=== PATIENT | female | born 1985 | race Caucasian/White ===

== ENCOUNTER → 2018-04-07 | Outpatient (REF) | payer SELFPAY | LOC: M LAB REF 11:36 | PROVIDERS: ATTEND Physician Assistant | DX: R30.0 Dysuria (principal) ==

== ENCOUNTER → 2019-11-09 | Outpatient (REF) | payer BC | LOC: M LAB REF 15:47 | PROVIDERS: ATTEND Physician Assistant Medical | DX: Z20.828 Contact with and (suspected) exposure to other viral communicable diseases (principal) ==

== ENCOUNTER 2021-10-26 15:44 | Inpatient (IN) | payer OTHER, MEDICAID ==
[~2021-10-26] VITALS: Ht 167.6 cm; Wt 68.9 kg
[2021-10-26] MEDS ORDERED: ONDA-83 PO (16:01)
[2021-10-26] MEDS ORDERED: LORazepam 2 MG/ML VIAL IV STA (16:32)
[2021-10-26] MEDS ORDERED: OXAZEPAM 15MG CAP PO ONE (16:35)
[2021-10-26] MEDS ORDERED: MULTIVITAMIN -ADULT INJECTION 10 ML, THIAMINE INJection 100 MG, FOLIC ACID 1 MG in NS 1... IV ONE (16:35)
[2021-10-26 17:07] LABS: BASO % 0.4 % (0.0-1.0); HEMATOCRIT 34.3 % (36.0-47.0); HEMOGLOBIN 11.5 g/dl (12.0-15.5); LYMPH # 0.6 10^3/uL (1.5-5.0); LYMPH % 7.5 % (24.0-44.0); MEAN CORPUSCULAR HEMOGLOBIN 27.2 pg (27.0-33.0); MEAN CORPUSCULAR HGB CONC 33.5 g/dl (32.0-36.5); MEAN CORPUSCULAR VOLUME 81.1 fl (80.0-96.0); MONO # 0.5 10^3/uL (0.0-0.8); MONO % 7.3 % (2.0-8.0); NEUTROPHILS # 6.3 10^3/uL (1.5-8.5); NEUTROPHILS % 84.1 % (36.0-66.0); PLATELET COUNT, AUTOMATED 100 10^3/uL (150-450); RED BLOOD COUNT 4.23 10^6/uL (4.00-5.40); WHITE BLOOD COUNT 7.4 10^3/uL (4.0-10.0)
[2021-10-26 17:33] LABS: ALBUMIN 3.5 GM/DL (3.2-5.2); ALT/SGPT 61 U/L (12-78); BILIRUBIN,DIRECT 0.8 MG/DL (0.0-0.2); BILIRUBIN,TOTAL 2.2 MG/DL (0.2-1.0); BLOOD UREA NITROGEN 2 MG/DL (7-18); CALCIUM LEVEL 8.7 MG/DL (8.5-10.1); CARBON DIOXIDE LEVEL 27 MEQ/L (21-32); CHLORIDE LEVEL 91 MEQ/L (98-107); GLOMERULAR FILTRATION RATE > 60.0 (>60); GLUCOSE, FASTING 152 MG/DL (70-100); MAGNESIUM LEVEL 1.1 MG/DL (1.8-2.4); PHOSPHORUS LEVEL 1.2 MG/DL (2.5-4.9); POTASSIUM SERUM 3.5 MEQ/L (3.5-5.1); SODIUM LEVEL 127 MEQ/L (136-145); TOTAL PROTEIN 7.5 GM/DL (6.4-8.2)
[2021-10-26 17:39] LABS: RSV AMPLIFICATION NEGATIVE (NEGATIVE)
[2021-10-26] MEDS ORDERED: NEUTRA-PHOS 1.5 GM PACKET PO ONE (17:40)
[2021-10-26] MEDS ORDERED: MAGNESIUM OXIDE 400MG TAB (MAG-OX) PO ONE (17:40)
[2021-10-26 17:47] LABS: HCG, SERUM QUALITATIVE NEGATIVE (NEGATIVE)
[2021-10-26] MEDS ORDERED: ACETAMINOPHEN TAB 650MG DOSE (2X325MG) PO PRN (20:45)
[2021-10-26] MEDS ORDERED: LORazepam 2 MG/ML VIAL IV PRN (20:45)
[2021-10-26] MEDS ORDERED: MOM 30ML SUSPENSION UDC PO PRN (20:45)
[2021-10-26] MEDS ORDERED: NS 1,000 ML IV SCH (20:45)
[2021-10-26] MEDS ORDERED: LORazepam 2 MG TAB PO PRN (20:45)
[2021-10-26] MEDS ORDERED: THIAMINE 100 MG TAB PO SCH (21:00)
[2021-10-26 22:10] VITALS: BP 159/89
[2021-10-26 22:13] VITALS: BP 154/87
[2021-10-26 22:17] VITALS: BP 159/89
[2021-10-26 23:01] VITALS: BP 123/100
[2021-10-26 23:04] VITALS: BP 137/92
[2021-10-26] MEDS: OXAZEPAM 10MG CAP PO SCH (23:19)
[2021-10-26] MEDS ORDERED: HOME MED LIST COMPLETE! XX SCH (23:35)
[2021-10-27] VITALS (13 sets, daily range): BP systolic 115–150; BP diastolic 67–111
[2021-10-27 04:44] LABS: HEMATOCRIT 32.8 % (36.0-47.0); HEMOGLOBIN 11.1 g/dl (12.0-15.5); MEAN CORPUSCULAR HEMOGLOBIN 28.3 pg (27.0-33.0); MEAN CORPUSCULAR HGB CONC 33.8 g/dl (32.0-36.5); MEAN CORPUSCULAR VOLUME 83.7 fl (80.0-96.0); RED BLOOD COUNT 3.92 10^6/uL (4.00-5.40); WHITE BLOOD COUNT 5.5 10^3/uL (4.0-10.0)
[2021-10-27 05:07] LABS: PLATELET COUNT, AUTOMATED 87 10^3/uL (150-450)
[2021-10-27 05:14] LABS: ALBUMIN 3.2 GM/DL (3.2-5.2); ALT/SGPT 60 U/L (12-78); BILIRUBIN,TOTAL 2.3 MG/DL (0.2-1.0); BLOOD UREA NITROGEN 5 MG/DL (7-18); CALCIUM LEVEL 8.9 MG/DL (8.5-10.1); CARBON DIOXIDE LEVEL 29 MEQ/L (21-32); CHLORIDE LEVEL 102 MEQ/L (98-107); GLOMERULAR FILTRATION RATE > 60.0 (>60); GLUCOSE, FASTING 77 MG/DL (70-100); MAGNESIUM LEVEL 1.8 MG/DL (1.8-2.4); POTASSIUM SERUM 3.3 MEQ/L (3.5-5.1); SODIUM LEVEL 137 MEQ/L (136-145)
[2021-10-27] MEDS ORDERED: POTASSIUM CHL PWD 20 MEQ PACKET PO ONE (05:40)
[2021-10-27] MEDS: OXAZEPAM 10MG CAP PO SCH ×4 (05:54→22:59)
[2021-10-27] MEDS: HEPARIN SOD (PORCINE) 5000UNITS/ML 1ML VIAL/SYRINGE SC SCH ×3 (06:00→22:00)
[2021-10-27] MEDS: THIAMINE 100 MG TAB PO SCH ×2 (07:57→20:23)
[2021-10-27] MEDS: FOLIC ACID 1MG TAB PO SCH (07:57)
[2021-10-27] MEDS: MULTIVITAMINS/MINERALS THERAP 1 TAB PO SCH (07:57)
[2021-10-27] MEDS ORDERED: POTASSIUM CHLORIDE 10MEQ SR TABLET PO ONE (09:15)
[2021-10-27] MEDS ORDERED: oxyCODONE 5MG TAB PO PRN (09:15)
[2021-10-27 10:39] LABS: CK-MB VALUE MASS 2.2 NG/ML (<3.6); MB/CK RELATIVE INDEX 0.58 (< OR =4)
[2021-10-27] MEDS ORDERED: NS 2,000 ML IV ONE (16:15)
[2021-10-27 17:40] LABS: BLOOD UREA NITROGEN 12 MG/DL (7-18); CALCIUM LEVEL 8.6 MG/DL (8.5-10.1); CARBON DIOXIDE LEVEL 27 MEQ/L (21-32); CHLORIDE LEVEL 106 MEQ/L (98-107); CREATININE FOR GFR 0.69 MG/DL (0.55-1.30); GLOMERULAR FILTRATION RATE > 60.0 (>60); GLUCOSE, FASTING 77 MG/DL (70-100); POTASSIUM SERUM 3.5 MEQ/L (3.5-5.1); SODIUM LEVEL 139 MEQ/L (136-145)
[2021-10-28] VITALS: BP_SYST 132; BP_SYST 133; BP_DIAS 78; BP_DIAS 85
[2021-10-28 04:00] VITALS: BP 123/71
[2021-10-28] MEDS: HEPARIN SOD (PORCINE) 5000UNITS/ML 1ML VIAL/SYRINGE SC SCH (05:09)
[2021-10-28 05:37] LABS: HEMATOCRIT 31.4 % (36.0-47.0); HEMOGLOBIN 10.1 g/dl (12.0-15.5); MEAN CORPUSCULAR HEMOGLOBIN 27.5 pg (27.0-33.0); MEAN CORPUSCULAR HGB CONC 32.2 g/dl (32.0-36.5); MEAN CORPUSCULAR VOLUME 85.6 fl (80.0-96.0); PLATELET COUNT, AUTOMATED 81 10^3/uL (150-450); RED BLOOD COUNT 3.67 10^6/uL (4.00-5.40); WHITE BLOOD COUNT 4.1 10^3/uL (4.0-10.0)
[2021-10-28] MEDS: OXAZEPAM 10MG CAP PO SCH (05:48)
[2021-10-28 05:54] LABS: BLOOD UREA NITROGEN 9 MG/DL (7-18); CALCIUM LEVEL 7.9 MG/DL (8.5-10.1); CARBON DIOXIDE LEVEL 25 MEQ/L (21-32); CHLORIDE LEVEL 111 MEQ/L (98-107); CREATININE FOR GFR 0.45 MG/DL (0.55-1.30); GLOMERULAR FILTRATION RATE > 60.0 (>60); GLUCOSE, FASTING 91 MG/DL (70-100); MAGNESIUM LEVEL 1.7 MG/DL (1.8-2.4); POTASSIUM SERUM 3.3 MEQ/L (3.5-5.1); SODIUM LEVEL 143 MEQ/L (136-145)
[2021-10-28 06:00] VITALS: BP 123/71
[2021-10-28] MEDS ORDERED: POTASSIUM CHLORIDE 10MEQ SR TABLET PO ONE ×2 (06:05→07:10)
[2021-10-28] MEDS ORDERED: MAGNESIUM OXIDE 400MG TAB (MAG-OX) PO ONE (06:05)
[2021-10-28] MEDS ORDERED: VITMTA PO (07:17)
[2021-10-28] MEDS ORDERED: OXAZ10CA3 PO ×2 (07:17→12:19)
[2021-10-28] MEDS ORDERED: THIA100TA PO (07:17)
[2021-10-28] MEDS ORDERED: FOLI1TAB11 PO (07:17)
[2021-10-28] MEDS ORDERED: MAG SULF 1GM/100ML (MAG RUN) 1 GM in IV 1 EA IV ONE (07:30)
[2021-10-28] MEDS: NS 1,000 ML IV SCH ×2 (08:10→09:11)
[2021-10-28 09:04] LABS: MB/CK RELATIVE INDEX 0.27 (< OR =4)
[2021-10-28] MEDS: MULTIVITAMINS/MINERALS THERAP 1 TAB PO SCH (09:11)
[2021-10-28] MEDS: THIAMINE 100 MG TAB PO SCH (09:11)
[2021-10-28] MEDS: FOLIC ACID 1MG TAB PO SCH (09:11)
== END 2021-10-28 12:07 | disposition home or self-care (01) | DRG 775 ==
LOC: EDBD 15:44 → M ED 15:44 → M ED INP 20:41 → M ICU 22:02
PROVIDERS: ADMIT Family Medicine; ATTEND Family Medicine
DX: F10.131 Alcohol abuse with withdrawal delirium (principal); M62.82 Rhabdomyolysis; D69.6 Thrombocytopenia, unspecified; E83.42 Hypomagnesemia; Z85.528 Personal history of other malignant neoplasm of kidney; Z90.5 Acquired absence of kidney; Z98.84 Bariatric surgery status; Z86.16 Personal history of COVID-19; Z79.899 Other long term (current) drug therapy; E87.1 Hypo-osmolality and hyponatremia; E87.6 Hypokalemia; D64.9 Anemia, unspecified

== ENCOUNTER 2023-09-12 20:11 | Inpatient (IN) | payer BC, OTHER ==
[~2023-09-12] VITALS: Ht 167.6 cm; Wt 85.5 kg
[~2023-09-12 20:11] MED LIST: FOLI1TAB11 PO; ONDA-83 PO; OXAZ10CA3 PO; THIA100TA PO; VITMTA PO
[2023-09-12 21:05] LABS: APPEARANCE, URINE CLEAR (CLEAR); BACTERIA, URINE AUTO NEGATIVE (NEGATIVE); BILIRUBIN, URINE AUTO NEGATIVE (NEGATIVE); BLOOD, URINE BLOOD 2+ (NEGATIVE); COLOR, URINE COLORLESS (YELLOW); GLUCOSE, URINE (UA) AUTO NEGATIVE (NEGATIVE); KETONE, URINE AUTO NEGATIVE (NEGATIVE); LEUKOCYTE ESTERASE, URINE AUTO NEGATIVE (NEGATIVE); NITRITE, URINE AUTO NEGATIVE (NEGATIVE); PROTEIN, URINE AUTO NEGATIVE (NEGATIVE); RBC, URINE AUTO 0 /HPF (0-3); SPECIFIC GRAVITY URINE AUTO 1.002 (1.002-1.035); SQUAMOUS EPITHELIAL CELL UR AU 0 /HPF (0-6); UROBILINOGEN, URINE AUTO 0.2 mg/dL (0.0-2.0); WBC, URINE AUTO 1 /HPF (0-3)
[2023-09-12 21:33] LABS: AMPHETAMINES LEVEL URINE NEGATIVE (NEGATIVE); BARBITURATES URINE NEGATIVE (NEGATIVE); BENZODIAZEPINES URINE NEGATIVE (NEGATIVE); CANNABINOIDS URINE NEGATIVE (NEGATIVE); COCAINE METABOLITE URINE NEGATIVE (NEGATIVE); METHADONE URINE NEGATIVE (NEGATIVE); OPIATES URINE NEGATIVE (NEGATIVE); PHENCYCLIDINE URINE NEGATIVE (NEGATIVE)
[2023-09-12 21:40] LABS: HEMATOCRIT 39.2 % (36.0-47.0); HEMOGLOBIN 13.5 g/dl (12.0-15.5); MEAN CORPUSCULAR HGB CONC 34.4 g/dl (32.0-36.5); MEAN CORPUSCULAR VOLUME 84.1 fl (80.0-96.0); PLATELET COUNT, AUTOMATED 309 10^3/uL (150-450); RED BLOOD COUNT 4.66 10^6/uL (4.00-5.40)
[2023-09-12 22:03] LABS: ALBUMIN 3.7 G/DL (3.2-5.2); ALKALINE PHOSPHATASE 149 U/L (46-116); ALT/SGPT 27 U/L (7.0-40); AST/SGOT 24 U/L (<34); BILIRUBIN,DIRECT 0.1 MG/DL (<0.4); BILIRUBIN,TOTAL 0.3 MG/DL (0.3-1.2); BLOOD UREA NITROGEN 14 MG/DL (9-23); CALCIUM LEVEL 8.7 MG/DL (8.5-10.1); CARBON DIOXIDE LEVEL 19 MMOL/L (20-31); CHLORIDE LEVEL 107 MMOL/L (98-107); CREATININE FOR GFR 0.57 MG/DL (0.55-1.30); GLOMERULAR FILTRATION RATE > 60.0 (>60); GLUCOSE, FASTING 92 MG/DL (60-100); POTASSIUM SERUM 3.4 MMOL/L (3.5-5.1); SALICYLATE LEVEL < 3.0 MG/DL (<30); SODIUM LEVEL 141 MMOL/L (136-145); TOTAL PROTEIN 6.9 G/DL (5.7-8.2)
[2023-09-12 22:05] LABS: THYROID STIMULATING HORMONE 0.225 uIU/ML (0.55-4.78)
[2023-09-12 22:25] LABS: ETHYL ALCOHOL (ETHANOL) 0.333 % (0.000-0.010)
[2023-09-12] MEDS: THIAMINE 100 MG TAB PO SCH (23:44)
[2023-09-12] MEDS: LORazepam 2 MG TAB PO PRN (23:54)
[2023-09-13] MEDS: MULTIVITAMINS/MINERALS THERAP 1 TAB PO SCH (07:42)
[2023-09-13] MEDS: FOLIC ACID 1MG TAB PO SCH (07:42)
[2023-09-13] MEDS ORDERED: THIA100T7 PO (08:15)
[2023-09-13] MEDS ORDERED: INVE234I INJ (08:18)
[2023-09-13] MEDS ORDERED: CLON-412 PO (08:18)
[2023-09-13] MEDS ORDERED: TRAZ-257 PO (08:18)
[2023-09-13] MEDS ORDERED: LORA1TAB23 PO (08:18)
[2023-09-13] MEDS ORDERED: HYDR50TA70 PO (08:18)
[2023-09-13] MEDS ORDERED: HOME MED LIST COMPLETE! XX SCH (09:30)
[2023-09-13] MEDS ORDERED: ACETAMINOPHEN TAB 650MG DOSE (2X325MG) PO PRN (12:35)
[2023-09-13] MEDS ORDERED: MAALOX 30 ML SUSP *UDC PO PRN (12:35)
[2023-09-13] MEDS ORDERED: MOM 30ML SUSPENSION UDC PO PRN (12:35)
[2023-09-13] MEDS ORDERED: IBUPROFEN 400MG TAB PO PRN (12:35)
[2023-09-13 20:40] VITALS: BP 139/95; TEMP 97.6; O2SAT 98
[2023-09-13 21:35] VITALS: BP 139/95
[2023-09-13] MEDS: traZODone 50 MG TAB PO PRN (21:36)
[2023-09-13] MEDS: THIAMINE 100 MG TAB PO SCH (21:37)
[2023-09-13] MEDS: LORazepam 2 MG TAB PO PRN (21:37)
[2023-09-14] VITALS (9 sets, daily range): BP systolic 112–160; BP diastolic 74–104; TEMP 97.9–98.8; O2SAT 97
[2023-09-14] MEDS ORDERED: cloNIDine 0.1MG TABLET PO SCH (09:00)
[2023-09-14] MEDS: FOLIC ACID 1MG TAB PO SCH (09:51)
[2023-09-14] MEDS: MULTIVITAMINS/MINERALS THERAP 1 TAB PO SCH (09:51)
[2023-09-14] MEDS: cloNIDine 0.1MG TABLET PO PRN (12:45)
[2023-09-14] MEDS: cloNIDine 0.1MG TABLET PO ONE (15:08)
[2023-09-14] MEDS: PALIPERIDONE PAL 156MG/1ML INJ(INVEGA)(FREE PSY INPT ONLY) IM ONE (16:25)
[2023-09-14] MEDS: diphenhydrAMINE 25MG CAP PO PRN (17:23)
[2023-09-15 06:13] VITALS: BP 102/50; TEMP 96.8; O2SAT 98
[2023-09-15 06:14] VITALS: BP 102/50
[2023-09-15 14:30] VITALS: BP 131/85; TEMP 97.6; O2SAT 100
[2023-09-16 06:22] VITALS: BP 102/57; TEMP 98.1; O2SAT 97
[2023-09-16 16:01] VITALS: BP 125/84; TEMP 98.2; O2SAT 98
[2023-09-17 06:21] VITALS: BP 100/59; TEMP 98.2; O2SAT 98
[2023-09-17 15:52] VITALS: BP 119/77; TEMP 98.3; O2SAT 98
[2023-09-17 21:47] VITALS: BP 138/78
[2023-09-18 06:08] VITALS: BP 111/65; TEMP 98.4; O2SAT 97
== END 2023-09-18 12:07 | disposition home or self-care (01) | DRG 750 ==
LOC: M ED 20:11 → M ED INP 09-13 12:31 → M PSY 09-13 20:38
PROVIDERS: ADMIT Psychiatry & Neurology Child & Adolescent Psychiatry; ATTEND Psychiatry & Neurology Child & Adolescent Psychiatry
DX: F20.9 Schizophrenia, unspecified (principal); F31.9 Bipolar disorder, unspecified; F10.20 Alcohol dependence, uncomplicated; Z79.899 Other long term (current) drug therapy; Z85.528 Personal history of other malignant neoplasm of kidney; Z98.84 Bariatric surgery status; F17.200 Nicotine dependence, unspecified, uncomplicated